=== PATIENT | female | born 1965 | race Caucasian/White ===

== ENCOUNTER 2020-10-20 11:23 | Emergency (ER) | payer SELFPAY ==
[2020-10-20 17:13] LABS: SARS-CoV-2 PCR by NAA DETECTED (NotDetected)
== END 2020-10-20 13:06 | disposition home or self-care (01) ==
LOC: BURERS 11:23
DX: U07.1 COVID-19 (principal); K21.9 Gastro-esophageal reflux disease without esophagitis; I10 Essential (primary) hypertension
CPT/HCPCS: 87635; 87804; 99283; U0003; U0005